=== PATIENT | female | born 1950 | race Caucasian/White ===

== ENCOUNTER 2017-12-15 14:54 | Inpatient (IN) | payer OTHER ==
[~2017-12-15] VITALS: Ht 170.2 cm; Wt 96.1 kg
[2017-12-15 16:25] LABS: Hematocrit 42.4 % (36.0-46.0); Hemoglobin 14.2 g/dL (12.2-16.2); Mean Corpuscular Hemoglobin 31.1 pg (28.0-32.0); Mean Corpuscular Hgb Conc. 33.4 g/dL (32.0-36.0); Mean Corpuscular Volume 93.1 fL (80.0-100.0); Platelet Count (auto) 210 10^3/uL (140-450); Red Blood Cells 4.56 10^6/uL (4.0-5.20); Red Cell Distribution Width 16.3 % (11.8-14.3); White Blood Cell 9.5 10^3/uL (4.4-10.8)
[2017-12-15] MEDS ORDERED: ONDANSETRON HCL 4 MG/2 ML VIAL IV ONE ×2 (16:30→19:15)
[2017-12-15] MEDS ORDERED: MORPHINE SULFATE 4 MG/ML SYR/VIAL IV ONE (16:30)
[2017-12-15 16:32] LABS: Basophils % (manual) 0 (0.0-2.0); Blast Cells 0; Eosinophils % (manual) 0 (0-7); Metamyelocytes % 0; Myelocytes % 0; Promyelocytes % 0; Reactive Lymphocytes 0
[2017-12-15] MEDS ORDERED: SODIUM CHLORIDE 0.9% 1,000 ML IVB ONE (16:42)
[2017-12-15 16:53] LABS: Alanine Aminotransferase 56 U/L (13-56); Alkaline Phosphatase 164 U/L (45-117); Amylase 63 U/L (25-115); Anion Gap 7 (5-15); Aspartate Aminotransferase 37 U/L (15-37); BUN/Creatinine Ratio 26.9; Bilirubin, Total 0.6 mg/dL (0.2-1.0); Blood Urea Nitrogen 21 mg/dL (7-18); Calcium 8.4 mg/dL (8.5-10.1); Carbon Dioxide 26 mmol/L (21-32); Chloride 105 mmol/L (98-107); GFR African American 94 mL/min; GFR Non-African American 78 mL/min; Glucose 93 mg/dL (74-106); Lipase 178 U/L (73-393); Magnesium 2.4 mg/dL (1.6-2.6); Potassium 4.2 mmol/L (3.5-5.1); Sodium 138 mmol/L (136-145); Total Protein 6.4 g/dL (6.4-8.2)
[2017-12-15 16:56] LABS: Band Neutrophils % (manual) 3; Lymphocytes % (manual) 10 (10.0-50.0); Monocytes % (manual) 13 (0-12)
[2017-12-15 17:01] LABS: Urine Bacteria NONE SEEN /hpf (None Seen); Urine Blood Negative /uL (Negative); Urine Specific Gravity 1.009 (1.001-1.035); Urine WBC 17 /hpf (0 - 5)
[2017-12-15] MEDS ORDERED: HYDROmorphone HCL 2 MG/ML VL IV ONE (19:15)
[2017-12-16] MEDS ORDERED: HYDROcodone-ACET 10/325MG TAB PO ONE (00:45)
[2017-12-16] MEDS ORDERED: ONDANSETRON HCL 4 MG/2 ML VIAL IV ONE (00:45)
[2017-12-16] MEDS ORDERED: ACETAMINOPHEN 500 MG TAB PO PRN (02:00)
[2017-12-16] MEDS ORDERED: SODIUM CHLORIDE 0.9% 1,000 ML IV ONE (02:30)
[2017-12-16] MEDS: ONDANSETRON HCL 4 MG/2 ML VIAL IV PRN ×5 (03:26→21:39)
[2017-12-16] MEDS: GABAPENTIN 300 MG CAP PO SCH ×3 (06:29→21:38)
[2017-12-16] MEDS: LEVOTHYROXINE SODIUM 100 MCG TAB PO SCH (06:29)
[2017-12-16] MEDS: HYDROcodone-ACET 10/325MG TAB PO PRN ×2 (06:30→10:52)
[2017-12-16] MEDS ORDERED: cefTRIAXone 1GM/10ml IVPUSH 10 ML IV ONE (09:00)
[2017-12-16] MEDS ORDERED: GABA-339 PO (09:57)
[2017-12-16] MEDS ORDERED: HYDR-4683 PO (09:57)
[2017-12-16] MEDS ORDERED: OMEP20TA PO (09:57)
[2017-12-16] MEDS ORDERED: DEXA4TAB PO (09:57)
[2017-12-16] MEDS ORDERED: LEVO25TA6 PO (09:57)
[2017-12-16] MEDS ORDERED: FAMOTIDINE 20 MG TAB PO SCH (10:00)
[2017-12-16 13:00] VITALS: BP_SYST 108; BP_SYST 118; BP_DIAS 63; BP_DIAS 78
[2017-12-16] MEDS ORDERED: MEPERIDINE HCL (25 MG/ML) 1ML VIAL IV PRN (14:30)
[2017-12-16] MEDS: SODIUM CHLORIDE 0.9% 1,000 ML IV SCH (15:45)
[2017-12-16] MEDS ORDERED: IOHEXOL 300 MG/ML 100ML BOTTLE IJ ONE ×2 (15:46→18:26)
[2017-12-16] MEDS: PANTOPRAZOLE 40 MG/10 ML VIAL IV SCH (15:53)
[2017-12-16 16:31] VITALS: BP 107/70
[2017-12-16] MEDS: HYDROmorphone HCL 2 MG/ML VL IV PRN ×2 (17:25→21:39)
[2017-12-16] MEDS ORDERED: NYSTATIN (MOUTH-THROAT) 500,000 UNITS/5 ML SUSP MT SCH (18:00)
[2017-12-16] MEDS: TAMSULOSIN HYDROCHLORIDE 0.4 MG CAP PO SCH (18:19)
[2017-12-16] MEDS: NYSTATIN (MOUTH-THROAT) 500,000 UNITS/5 ML SUSP MT SCH (21:37)
[2017-12-16 22:00] VITALS: BP 97/63
[2017-12-17] MEDS: HYDROmorphone HCL 2 MG/ML VL IV PRN ×5 (02:45→20:12)
[2017-12-17] MEDS: ONDANSETRON HCL 4 MG/2 ML VIAL IV PRN ×3 (02:45→20:12)
[2017-12-17 05:00] VITALS: BP 92/64
[2017-12-17] MEDS: SODIUM CHLORIDE 0.9% 1,000 ML IV SCH ×2 (05:05→18:48)
[2017-12-17] MEDS: GABAPENTIN 300 MG CAP PO SCH ×3 (06:52→22:27)
[2017-12-17] MEDS: NYSTATIN (MOUTH-THROAT) 500,000 UNITS/5 ML SUSP MT SCH ×4 (06:52→22:27)
[2017-12-17] MEDS: LEVOTHYROXINE SODIUM 100 MCG TAB PO SCH (06:53)
[2017-12-17 07:22] LABS: Basophils # (auto) 0 uL; Basophils % (auto) 0.3 % (0.0-2.0); Eosinophils # (auto) 0 uL; Hemoglobin 13.9 g/dL (12.2-16.2); Lymphocytes % (auto) 13.5 % (10.0-50.0); Mean Corpuscular Hemoglobin 30.6 pg (28.0-32.0); Mean Corpuscular Hgb Conc. 33.2 g/dL (32.0-36.0); Mean Corpuscular Volume 92.4 fL (80.0-100.0); Monocytes # (auto) 0.9 uL; Monocytes % (auto) 11.3 % (0.0-12.0); Neutrophils # (auto) 5.8 uL; Neutrophils % (auto) 74.9 % (37.0-80.0); Nucleated Red Blood Cells % 0.2 %; Platelet Count (auto) 177 10^3/uL (140-450); Red Blood Cells 4.55 10^6/uL (4.0-5.20); Red Cell Distribution Width 16.4 % (11.8-14.3); White Blood Cell 7.7 10^3/uL (4.4-10.8)
[2017-12-17 07:27] LABS: Albumin 2.6 g/dL (3.4-5.0); BUN/Creatinine Ratio 34.8; Bilirubin, Total 1.1 mg/dL (0.2-1.0); Total Protein 5.8 g/dL (6.4-8.2)
[2017-12-17 08:52] VITALS: BP 119/78
[2017-12-17] MEDS: PANTOPRAZOLE 40 MG/10 ML VIAL IV SCH (08:58)
[2017-12-17] MEDS: cefTRIAXone 1GM/10ml IVPUSH 10 ML IV SCH (08:58)
[2017-12-17 12:30] VITALS: BP 95/68
[2017-12-17 16:29] VITALS: BP 102/64
[2017-12-17] MEDS: TAMSULOSIN HYDROCHLORIDE 0.4 MG CAP PO SCH (18:00)
[2017-12-17 22:00] VITALS: BP 95/70
[2017-12-18] MEDS: ONDANSETRON HCL 4 MG/2 ML VIAL IV PRN ×6 (00:22→21:32)
[2017-12-18] MEDS: HYDROmorphone HCL 2 MG/ML VL IV PRN ×6 (00:22→21:33)
[2017-12-18 05:03] VITALS: BP 113/79
[2017-12-18] MEDS: NYSTATIN (MOUTH-THROAT) 500,000 UNITS/5 ML SUSP MT SCH ×4 (06:17→21:33)
[2017-12-18] MEDS: LEVOTHYROXINE SODIUM 100 MCG TAB PO SCH (06:18)
[2017-12-18] MEDS: GABAPENTIN 300 MG CAP PO SCH ×3 (06:20→21:33)
[2017-12-18 07:47] VITALS: BP 97/60
[2017-12-18] MEDS: PANTOPRAZOLE 40 MG/10 ML VIAL IV SCH (08:30)
[2017-12-18] MEDS: cefTRIAXone 1GM/10ml IVPUSH 10 ML IV SCH (08:30)
[2017-12-18] MEDS: POLYETHYLENE GLYCOL 17 GM PWDR PO SCH (08:31)
[2017-12-18] MEDS: SODIUM CHLORIDE 0.9% 1,000 ML IV SCH ×2 (08:31→22:15)
[2017-12-18] MEDS: HYDROcodone-ACET 10/325MG TAB PO PRN ×2 (10:22→20:33)
[2017-12-18 12:09] VITALS: BP 101/67
[2017-12-18 17:08] VITALS: BP 100/62
[2017-12-18] MEDS: TAMSULOSIN HYDROCHLORIDE 0.4 MG CAP PO SCH (17:17)
[2017-12-18 22:00] VITALS: BP 95/55
[2017-12-19] MEDS: HYDROmorphone HCL 2 MG/ML VL IV PRN ×3 (03:26→12:00)
[2017-12-19 05:00] VITALS: BP 99/70
[2017-12-19] MEDS: HYDROcodone-ACET 10/325MG TAB PO PRN ×2 (06:22→15:40)
[2017-12-19] MEDS: LEVOTHYROXINE SODIUM 100 MCG TAB PO SCH (06:23)
[2017-12-19] MEDS: NYSTATIN (MOUTH-THROAT) 500,000 UNITS/5 ML SUSP MT SCH ×2 (06:23→12:00)
[2017-12-19] MEDS: GABAPENTIN 300 MG CAP PO SCH ×2 (06:26→14:13)
[2017-12-19] MEDS ORDERED: SODIUM CHLORIDE LOCK 10 ML ONE (07:20)
[2017-12-19] MEDS ORDERED: fentaNYL CITRATE 100 MCG/2 ML VL ONE (07:21)
[2017-12-19] MEDS ORDERED: diphenhdrAMINE HCL 50 MG/1 ML VL ONE (07:21)
[2017-12-19] MEDS ORDERED: LIDOCAINE VISCOUS 2% 15ML UD ONE (07:21)
[2017-12-19] MEDS ORDERED: MIDAZOLAM HCL 5 MG/ML-1ML VIAL ONE (07:21)
[2017-12-19 07:23] LABS: Partial Thromboplastin Time 27.8 sec (23.78-33.04); Prothrombin Time 10.7 sec (9.27-12.13)
[2017-12-19] MEDS: ONDANSETRON HCL 4 MG/2 ML VIAL IV PRN ×2 (07:46→12:00)
[2017-12-19 08:21] VITALS: BP 90/76
[2017-12-19] MEDS: cefTRIAXone 1GM/10ml IVPUSH 10 ML IV SCH (09:00)
[2017-12-19] MEDS: PANTOPRAZOLE 40 MG/10 ML VIAL IV SCH (09:24)
[2017-12-19] MEDS: POLYETHYLENE GLYCOL 17 GM PWDR PO SCH ×2 (09:24→12:01)
[2017-12-19 10:30] LABS: Hepatitis A Ab IgM Negative; Hepatitis B Core IgM Negative; Hepatitis B Surface Antigen Negative (Negative)
[2017-12-19] MEDS ORDERED: PANTOPRAZOLE 40 MG TAB PO ONE (10:30)
[2017-12-19 10:31] LABS: Hepatitis C Antibody Negative (Negative)
[2017-12-19] MEDS ORDERED: SUCRALFATE 1 GM/10 ML ORAL SUSP PO SCH (11:30)
[2017-12-19] MEDS: SODIUM CHLORIDE 0.9% 1,000 ML IV SCH (12:00)
[2017-12-19 12:11] VITALS: BP 111/77
[2017-12-19] MEDS ORDERED: PANTOPRAZOLE 40 MG TAB PO SCH (22:00)
== END 2017-12-19 17:00 | disposition home or self-care (01) | DRG 690 ==
LOC: EDBD 14:54 → ER 14:55 → OVERFLOW 14:56 → CENTRAL 12-16 08:39
PROVIDERS: ADMIT Nurse Practitioner Family; ATTEND Internal Medicine
PROC: 0DBA8ZX Excision of Jejunum, Via Natural or Artificial Opening Endoscopic, Diagnostic (ICD-10-PCS; 2017-12-19)
PROC: 0DB48ZX Excision of Esophagogastric Junction, Via Natural or Artificial Opening Endoscopic, Diagnostic (ICD-10-PCS; principal; 2017-12-19 10:02)
DX: N30.00 Acute cystitis without hematuria (principal); C37 Malignant neoplasm of thymus; E44.0 Moderate protein-calorie malnutrition; K21.0 Gastro-esophageal reflux disease with esophagitis; N20.0 Calculus of kidney; Z68.33 Body mass index [BMI] 33.0-33.9, adult; K52.9 Noninfective gastroenteritis and colitis, unspecified; E66.9 Obesity, unspecified; I10 Essential (primary) hypertension; R13.10 Dysphagia, unspecified; Z80.0 Family history of malignant neoplasm of digestive organs; Z80.49 Family history of malignant neoplasm of other genital organs; Z80.8 Family history of malignant neoplasm of other organs or systems; Z82.49 Family history of ischemic heart disease and other diseases of the circulatory system; Z85.238 Personal history of other malignant neoplasm of thymus; Z85.42 Personal history of malignant neoplasm of other parts of uterus; Z85.841 Personal history of malignant neoplasm of brain; Z87.442 Personal history of urinary calculi; Z87.891 Personal history of nicotine dependence; Z90.49 Acquired absence of other specified parts of digestive tract; Z90.710 Acquired absence of both cervix and uterus; Z92.3 Personal history of irradiation; Z98.84 Bariatric surgery status; S22.079D Unspecified fracture of T9-T10 vertebra, subsequent encounter for fracture with routine healing
CPT/HCPCS: 36415; 43239; 71045; 71260; 74176; 76705; 78226; 80053; 80074; 81001; 82150; 83690; 83735; 84443; 84484; 85007; 85025; 85027; 85610; 85730; 86850; 86900; 86901; 87040; 87086; 87088; 87186; 93005; 94761; 96361; 96374; 96375; 96376; A6257; C9113; J0696; J1642; J2250; J2405